=== PATIENT | female | born 1990 | race Caucasian/White ===

== ENCOUNTER 2018-11-30 06:13 | Inpatient (IN) | payer OTHER ==
[2018-11-29 08:25] VITALS: BMI 28.0
[2018-11-30] MEDS ORDERED: Propofol 10 mg/ml Inj (20 ML) ONE (07:21)
[2018-11-30] MEDS ORDERED: ePHEDrine 50 mg/ml Inj ONE (07:21)
--- NOTE | 2018-11-30 07:21 | CP.PCM.HP ---
History of Present Illness - History of Present Illness History of Present Illness: 16 wks with a large ovarian mass by sono and MRI done showing possible dermoid. After consult with perinatologist and discussion with pt now for ovarian mass removal. Present on Admission - Present on Admission Any Indicators Present on Admission: No History of DVT/PE: No History of Uncontrolled Diabetes: No Urinary Catheter: No Decubitus Ulcer Present: No Review of Systems - Constitutional Constitutional: As Per HPI - Reproductive: Female Reproductive:Female: As Per HPI Additional comments: 16 wks - Menstruation Menstruation: As Per HPI Past Patient History - Past Medical History & Family History Past Medical History?: Yes - Past Social History Smoking Status: Never Smoked Alcohol: None Drugs: Denies - CARDIAC Hx Cardiac Disorders: No - PULMONARY Hx Respiratory Disorders: No - HEENT Hx HEENT Problems: No - INTEGUMENTARY Hx Dermatological Problems: No - GENITOURINARY/GYNECOLOGICAL Hx Genitourinary Disorders: No LMP:: 07/27/18 : 1 Para: 0 Termination of : 0 - PSYCHIATRIC Hx Psychophysiologic Disorder: No Hx Emotional Abuse: No Hx Physical Abuse: No - ANESTHESIA Hx Malignant Hyperthermia: No Has any member of the family had a problem w/ anesthesia?: No Meds Allergies/Adverse Reactions: Allergies Allergy/AdvReac Type Severity Reaction Status Date / Time No Known Allergies Allergy Verified 08/30/13 14:06 Physical Exam - Constitutional Appears: No Acute Distress - Head Exam Head Exam: ATRAUMATIC - ENT Exam ENT Exam: Mucous Membranes Moist - Neck Exam Neck exam: Positive for: Normal Inspection - Respiratory Exam Respiratory Exam: NORMAL BREATHING PATTERN - GI/Abdominal Exam GI & Abdominal Exam: Normal Bowel Sounds, Soft Additional comments: uterine fundus 4 FB below the umb. gravid NT - Exam External exam: NORMAL EXTERNAL EXAM - Extremities Exam Extremities exam: Positive for: normal inspection - Neurological Exam Neurological exam: Alert, Oriented x3 - Psychiatric Exam Psychiatric exam: Normal Affect Results - Vital Signs Recent Vital Signs: Last Vital Signs Temp 98.2 F 11/30/18 07:02 Pulse 89 11/30/18 07:02 Resp 18 11/30/18 07:02 BP 142/82 11/30/18 07:02 Pulse Ox 98 11/30/18 07:02 Assessment & Plan (1) Status: Acute (2) Ovarian mass Status: Acute - Assessment and Plan (Free Text) Plan: for laparotomy and removal of ovarian mass - Date & Time Date: 11/30/18 Time: 07:30
[2018-11-30 07:22] LABS: HEMOGLOBIN 10.3 g/dL (12.0-16.0); MEAN CELL VOLUME 93.7 fl (81.0-99.0); MEAN CORPUSCULAR HEMOGLOBIN 32.5 pg (27.0-31.0); MEAN CORPUSCULAR HGB CONC 34.7 g/dL (33.0-37.0); RBC 3.18 Mil/uL (3.80-5.20); RED CELL DISTRIBUTION WIDTH 13.6 % (11.5-14.5); WHITE BLOOD COUNT 8.3 K/uL (4.8-10.8)
[2018-11-30] MEDS ORDERED: Lidocaine 4% (Laryng-O-Jet) Kit MM ONE (07:22)
[2018-11-30] MEDS ORDERED: Succinylcholine Chloride 20 mg/ml Syr (5 ml) IV ONE (07:22)
[2018-11-30 07:26] LABS: INR 0.9; PROTHROMBIN TIME 10.4 Seconds (9.8-13.1)
[2018-11-30 07:28] LABS: PARTIAL THROMBOPLASTIN TIME 34.3 Seconds (25.6-37.1)
[2018-11-30 07:29] LABS: ALB/GLOB RATIO 1.2 (1.0-2.1); ALBUMIN 4.2 g/dL (3.5-5.0); ALT/SGPT 40 U/L (9-52); AST/SGOT 35 U/L (14-36); BLOOD UREA NITROGEN 13 mg/dl (7-17); CALCIUM 9.1 mg/dL (8.4-10.2); GFR NON-AFRICAN AMERICAN > 60
[2018-11-30] MEDS ORDERED: cefOXitin IV 1 gm in Dextrose 2 GM/100 ML BAG IVPB ONE (07:41)
[2018-11-30] MEDS ORDERED: Lactated Ringer's 1,000 ML IV ONE (08:15)
[2018-11-30] MEDS ORDERED: Bupivacaine 0.25% 300 ML in Sodium Chloride 0.9% 300 ML IS ONE (08:28)
[2018-11-30] MEDS ORDERED: Bupivacaine 0.5% Inj(30mL) ONE (09:05)
[2018-11-30] MEDS ORDERED: HYDROmorphone 0.5 mg/0.5 ml ISec IVP PRN (09:41)
[2018-11-30] MEDS ORDERED: Lactated Ringer's 1,000 ML IV SCH (09:45)
[2018-11-30] MEDS: Lactated Ringer's 1,000 ML IV SCH ×2 (11:10→18:57)
[2018-11-30 11:41] VITALS: O2SAT 98
[2018-11-30] MEDS: cefOXitin IV 1 gm in Dextrose 1 GM/50 ML BAG IVPB SCH (16:42)
[2018-12-01] MEDS: cefOXitin IV 1 gm in Dextrose 1 GM/50 ML BAG IVPB SCH ×2 (01:00→09:22)
[2018-12-01] MEDS: Lactated Ringer's 1,000 ML IV SCH ×2 (02:20→12:08)
[2018-12-01 06:54] LABS: BASO % 0.2 % (0.0-2.0); EOS % 0.1 % (0.0-4.0); HEMOGLOBIN 9.4 g/dL (12.0-16.0); LYMPH # 1.4 K/uL (1.0-4.3); LYMPH % 10.9 % (20.0-40.0); MEAN CELL VOLUME 93.1 fl (81.0-99.0); MEAN CORPUSCULAR HEMOGLOBIN 32.9 pg (27.0-31.0); MEAN CORPUSCULAR HGB CONC 35.4 g/dL (33.0-37.0); MEAN PLATELET VOLUME 9.1 fl (7.2-11.7); MONO # 0.7 K/uL (0.0-0.8); MONO % 5.9 % (0.0-10.0); NEUT # 10.4 K/uL (1.8-7.0); NEUT % 82.9 % (50.0-75.0); NRBC % 0.1 % (0.0-0.0); RBC 2.85 Mil/uL (3.80-5.20); RED CELL DISTRIBUTION WIDTH 13.5 % (11.5-14.5); WHITE BLOOD COUNT 12.6 K/uL (4.8-10.8)
--- NOTE | 2018-12-01 07:53 | CP.PCM.PN ---
Subjective - Date & Time of Evaluation Date of Evaluation: 12/01/18 Time of Evaluation: 07:51 - Subjective Subjective: no further n/v; Tolerated liquids well last night; Denies c/f, no vaginal bleeding or spotting Denies sob, chest or leg pains. Objective - Vital Signs/Intake and Output Vital Signs (last 24 hours): Temp Pulse Resp BP Pulse Ox 98.8 F 102 H 20 120/67 98 12/01/18 05:00 12/01/18 05:00 12/01/18 05:00 12/01/18 05:00 12/01/18 05:00 - Medications Medications: Current Medications Acetaminophen (Tylenol 325mg Tab) 650 mg PO Q4 PRN PRN Reason: Pain, Mild (1-3) Lactated Ringer's (Lactated Ringer's) 1,000 mls @ 125 mls/hr IV .Q8H RASHEL Last Admin: 12/01/18 02:20 Dose: 125 mls/hr Cefoxitin Sodium (Mefoxin Iv 1 Gm Duplex) 1 gm in 50 mls @ 50 mls/hr IVPB Q8 RASHEL; Protocol Stop: 12/01/18 09:59 Last Admin: 12/01/18 01:00 Dose: 50 mls/hr Oxycodone/Acetaminophen (Percocet 5/325 Mg Tab) 1 tab PO Q4 PRN PRN Reason: Pain, moderate (4-7) Stop: 12/03/18 12:28 - Labs Labs: 12/01/18 05:20 11/30/18 07:00 PT 10.4 Seconds (9.8-13.1) 11/30/18 07:00 INR 0.9 11/30/18 07:00 APTT 34.3 Seconds (25.6-37.1) 11/30/18 07:00 - Constitutional Appears: No Acute Distress - Head Exam Head Exam: ATRAUMATIC - ENT Exam ENT Exam: Mucous Membranes Moist - Neck Exam Neck Exam: Full ROM - Respiratory Exam Respiratory Exam: NORMAL BREATHING PATTERN - GI/Abdominal Exam Additional comments: soft ND no guarding, fundus at 3 FB below the umb NT, FCA by doppler 160's reg., dressing intact removed incision clean and dry no active bleeding or sign of infection. Prolene and steady strips in place. Champion in place draining clear fluid. - Extremities Exam Extremities Exam: Full ROM Additional comments: Venodyne in place, no leg edema or calf tenderness. - Neurological Exam Neurological Exam: Alert, Awake, Oriented x3 - Psychiatric Exam Psychiatric exam: Normal Mood Assessment and Plan (1) Status: Acute (2) Ovarian mass Status: Acute - Assessment and Plan (Free Text) Assessment: POD #1, stable Plan: CBC reviewed and stable, D/C champion cath and OOB to chair with ambulation; Advance diet as tolerated. Continue po care.
[2018-12-01] MEDS: Oxycodone/Acetaminophen 5/325 mg Tab PO PRN ×3 (08:37→22:18)
--- NOTE | 2018-12-02 08:35 | CP.PCM.PN ---
Subjective - Date & Time of Evaluation Date of Evaluation: 12/02/18 Time of Evaluation: 15:00 - Subjective Subjective: patient c/o incisional pain Objective - Vital Signs/Intake and Output Vital Signs (last 24 hours): Temp Pulse Resp BP Pulse Ox 98.3 F 110 H 20 117/72 98 12/02/18 05:00 12/02/18 05:00 12/02/18 05:00 12/02/18 05:00 12/01/18 05:00 - Medications Medications: Current Medications Acetaminophen (Tylenol 325mg Tab) 650 mg PO Q4 PRN PRN Reason: Pain, Mild (1-3) Last Admin: 12/01/18 10:42 Dose: 650 mg Oxycodone/Acetaminophen (Percocet 5/325 Mg Tab) 1 tab PO Q4 PRN PRN Reason: Pain, moderate (4-7) Stop: 12/03/18 12:28 Last Admin: 12/01/18 22:18 Dose: 1 tab - Labs Labs: 12/01/18 05:20 11/30/18 07:00 PT 10.4 Seconds (9.8-13.1) 11/30/18 07:00 INR 0.9 11/30/18 07:00 APTT 34.3 Seconds (25.6-37.1) 11/30/18 07:00 - Eye Exam Additional comments: v.s stable afebrile fhr 165bpm no bm today Assessment and Plan - Assessment and Plan (Free Text) Assessment: stable pod2 contnue present care Plan: continue present care
[2018-12-02] MEDS: Oxycodone/Acetaminophen 5/325 mg Tab PO PRN ×2 (09:15→20:21)
--- NOTE | 2018-12-02 22:29 | OP ---
PROCEDURE DATE: 11/30/2018 PREOPERATIVE DIAGNOSES: 1. at 16 weeks' gestation. 2. Right large adnexal mass. POSTOPERATIVE DIAGNOSES: 1. at 16 weeks' gestation. 2. Pending pathology report. PROCEDURE PERFORMED: Laparotomy with right salpingo-oophorectomy. SURGEON: Arjun Boston MD NATURAL GAS TECHNICIAN: Gregory Houser MD. Dr. Houser was present for the entire duration of the case. Filler Feeder needed in opening up the abdomen, removal of the mass and closure of the abdomen. No bank president is present at this time. ANESTHESIA USED: General endotracheal per Dr. Vargas. ESTIMATED BLOOD LOSS: 50 to 60 mL. DRAINS USED: None. REPLACEMENTS USED: None. FINDINGS: 1, Uterus appears gravid about 16 weeks' size, smooth and mobile. 2. Large over 10-cm right adnexal mass involving the entire ovary and part of the tube. 3. Right salpingo-oophorectomy performed without any complications. 4. Left ovary appears to palpation normal size and shape, however, not able to visualize secondary to gravid uterus and not trying to manipulate the gravid uterus too much. DESCRIPTION OF PROCEDURE: The patient was taken to the operating room and placed on the operating table in a supine position. Following induction of general anesthesia, a Ivy catheter was then inserted into the bladder and it was draining clear fluid. Following this, we then proceeded to apply Venodyne boots to both legs. The abdomen was then draped and prepped in the usual sterile manner. A Pfannenstiel incision was then made using sharp dissection 2 fingerbreadths above the symphysis pubis. The incision was then extended down to the subcutaneous tissue using sharp dissection and extended down to the fascia. The fascia was identified and was then entered at the midline incision, and the fascia was then extended laterally in each direction. Rectus muscle was then identified, was then split at the midline, exposing the peritoneum. The peritoneal layer was then picked up using two Janiya clamps and retracted superiorly and then entered using sharp dissection. Incision on the peritoneum was then extended superiorly and inferiorly under direct visualization. At this time, a 16-week size gravid uterus noted to be present. On the right adnexal area, a 10-cm mass was found. It appeared smooth but involving the entire ovary. At this time, decision for right salpingo-oophorectomy was then performed. The mass appears too big to be excised and leave any ovarian tissue behind. The right infundibulopelvic ligament was identified, was doubly clamped, cut, and ligated using 0 Vicryl suture and free ties. The right utero-ovarian ligament was also doubly clamped, cut and ligated using 0 Vicryl suture and free ties without any complications. Following removal of the mass, a specimen was then sent to Pathology for proper pathological evaluation. The left ovary was felt to palpation to be normal size, however, in order to prevent further manipulation of the gravid uterus was not able to be visualized. At this time, all operative areas were checked and hemostatically secured. The peritoneum was then approximated using 0 Vicryl suture in a continuous manner. Rectus muscle was then approximated at the midline also using 0 Vicryl suture in an interrupted manner. On-Q pump catheter was then placed between the muscle and the peritoneum in order to provide pain management and exteriorized through the puncture on the right lower quadrant. At this time, the fascia was then identified, was then approximated using 1 Vicryl suture in a continuous manner. The fascia was then checked and found to be free of defect. Subcutaneous tissue was then irrigated using saline solution and approximated using several interrupted 2-0 plain sutures. Skin was then approximated using a 3-0 Prolene in a subcuticular fashion. Steri-Strips were then applied. Sponge, instrument and needle counts were correct x3. The patient tolerated the procedure well. There were no complications. Clear fluid noted to be present in the Ivy bag at this time. The patient was then transferred to the recovery room in satisfactory condition. cardiac activity was noted by Doppler in the recovery room to be present. Arjun Boston MD
[2018-12-03 05:34] VITALS: RESP 20
[2018-12-03 05:38] VITALS: BP 95/58; PULSE 89; TEMP 98.6
[2018-12-03] MEDS: Oxycodone/Acetaminophen 5/325 mg Tab PO PRN (09:59)
--- NOTE | 2018-12-03 10:25 | CP.PCM.PN ---
Subjective - Date & Time of Evaluation Date of Evaluation: 12/03/18 Time of Evaluation: 10:23 - Subjective Subjective: Feels better, had BM+ denies C/F and n/V Objective - Vital Signs/Intake and Output Vital Signs (last 24 hours): Temp Pulse Resp BP Pulse Ox 98.6 F 89 20 95/58 L 98 12/03/18 05:00 12/03/18 05:00 12/03/18 05:00 12/03/18 05:00 12/01/18 05:00 - Medications Medications: Current Medications Acetaminophen (Tylenol 325mg Tab) 650 mg PO Q4 PRN PRN Reason: Pain, Mild (1-3) Last Admin: 12/01/18 10:42 Dose: 650 mg Oxycodone/Acetaminophen (Percocet 5/325 Mg Tab) 1 tab PO Q4 PRN PRN Reason: Pain, moderate (4-7) Stop: 12/03/18 12:28 Last Admin: 12/03/18 09:59 Dose: 1 tab - Labs Labs: 12/01/18 05:20 11/30/18 07:00 PT 10.4 Seconds (9.8-13.1) 11/30/18 07:00 INR 0.9 11/30/18 07:00 APTT 34.3 Seconds (25.6-37.1) 11/30/18 07:00 - Constitutional Appears: No Acute Distress - Head Exam Head Exam: ATRAUMATIC - Neck Exam Neck Exam: Full ROM - Respiratory Exam Respiratory Exam: NORMAL BREATHING PATTERN - GI/Abdominal Exam Additional comments: soft ND, No rebound, fundus below umb nt, FCA at 140's by doppler, incision clean and dry no suppt or discharge Prolene in place. On Q pump in place removed, tip intact. - Exam External exam: NORMAL EXTERNAL EXAM - Extremities Exam Additional comments: no edema or calf tenderness - Neurological Exam Neurological Exam: Alert, Awake, Oriented x3 - Psychiatric Exam Psychiatric exam: Normal Affect Assessment and Plan (1) Status: Acute (2) Ovarian mass Status: Acute - Assessment and Plan (Free Text) Assessment: stable and improved Plan: D/C home with instructions and appt to office 1 wk
--- NOTE | 2018-12-03 10:29 | CP.PCM.DIS ---
Provider - Provider Date of Admission: 11/30/18 09:54 Attending physician: Arjun Boston MD Time Spent in preparation of Discharge (in minutes): 5 Diagnosis - Discharge Diagnosis (1) Status: Acute (2) Ovarian mass Status: Acute Hospital Course - Lab Results Lab Results: Most Recent Lab Values WBC 12.6 K/uL (4.8-10.8) H D 12/01/18 05:20 RBC 2.85 Mil/uL (3.80-5.20) L 12/01/18 05:20 Hgb 9.4 g/dL (12.0-16.0) L 12/01/18 05:20 Hct 26.5 % (34.0-47.0) L 12/01/18 05:20 MCV 93.1 fl (81.0-99.0) 12/01/18 05:20 MCH 32.9 pg (27.0-31.0) H 12/01/18 05:20 MCHC 35.4 g/dL (33.0-37.0) 12/01/18 05:20 RDW 13.5 % (11.5-14.5) 12/01/18 05:20 Plt Count 242 K/uL (130-400) 12/01/18 05:20 MPV 9.1 fl (7.2-11.7) 12/01/18 05:20 Neut % (Auto) 82.9 % (50.0-75.0) H 12/01/18 05:20 Lymph % (Auto) 10.9 % (20.0-40.0) L 12/01/18 05:20 [place] % (Auto) 5.9 % (0.0-10.0) 12/01/18 05:20 Eos % (Auto) 0.1 % (0.0-4.0) 12/01/18 05:20 Baso % (Auto) 0.2 % (0.0-2.0) 12/01/18 05:20 Neut # (Auto) 10.4 K/uL (1.8-7.0) H 12/01/18 05:20 Lymph # (Auto) 1.4 K/uL (1.0-4.3) 12/01/18 05:20 [place] # (Auto) 0.7 K/uL (0.0-0.8) 12/01/18 05:20 Eos # (Auto) 0.0 K/uL (0.0-0.7) 12/01/18 05:20 Baso # (Auto) 0.0 K/uL (0.0-0.2) 12/01/18 05:20 PT 10.4 Seconds (9.8-13.1) 11/30/18 07:00 INR 0.9 11/30/18 07:00 APTT 34.3 Seconds (25.6-37.1) 11/30/18 07:00 Sodium 135 mmol/l (132-148) 11/30/18 07:00 Potassium 3.7 MMOL/L (3.6-5.0) 11/30/18 07:00 Chloride 100 mmol/L (98-107) 11/30/18 07:00 Carbon Dioxide 25 mmol/L (22-30) 11/30/18 07:00 Anion Gap 14 (10-20) 11/30/18 07:00 BUN 13 mg/dl (7-17) 11/30/18 07:00 Creatinine 0.4 mg/dl (0.7-1.2) L 11/30/18 07:00 Est GFR ( Amer) > 60 11/30/18 07:00 Est GFR (Non-Af Amer) > 60 11/30/18 07:00 Random Glucose 85 mg/dL (65-105) 11/30/18 07:00 Calcium 9.1 mg/dL (8.4-10.2) 11/30/18 07:00 Total Bilirubin 0.2 mg/dl (0.2-1.3) 11/30/18 07:00 AST 35 U/L (14-36) 11/30/18 07:00 ALT 40 U/L (9-52) 11/30/18 07:00 Alkaline Phosphatase 53 U/L (38-126) 11/30/18 07:00 Total Protein 7.8 G/DL (6.3-8.2) 11/30/18 07:00 Albumin 4.2 g/dL (3.5-5.0) 11/30/18 07:00 Globulin 3.6 gm/dL (2.2-3.9) 11/30/18 07:00 Albumin/Globulin Ratio 1.2 (1.0-2.1) 11/30/18 07:00 - Hospital Course Hospital Course: underwent laparotomy for ovarian mass and RT SO done without any complications PO was unremarkable. Discharge Exam - Head Exam Head Exam: ATRAUMATIC Discharge Plan - Follow Up Plan Condition: IMPROVED Additional Instructions: pelvic and bed rest and rx for Percocet given
== END 2018-12-03 14:40 | disposition home or self-care (01) | DRG 819 ==
LOC: H.OPSURG 06:13 → H.OB/GYN 09:54 → UNDOADMIN 11:38 → H.OB/GYN 11:38
PROVIDERS: ADMIT Specialist; ATTEND Specialist
PROC: 0UT04ZZ Resection of Right Ovary, Percutaneous Endoscopic Approach (ICD-10-PCS; 2018-11-30)
PROC: 0UT54ZZ Resection of Right Fallopian Tube, Percutaneous Endoscopic Approach (ICD-10-PCS; principal; 2018-11-30 07:45)
DX: O34.82 Maternal care for other abnormalities of pelvic organs, second trimester (principal); D39.11 Neoplasm of uncertain behavior of right ovary; Z3A.16 16 weeks gestation of pregnancy